=== PATIENT | male | born 1960 | race Caucasian/White ===

== ENCOUNTER 2019-05-18 11:11 | Emergency (ER) | payer OTHER, SELFPAY ==
[2019-05-18 11:19] VITALS: BP 121/78; PULSE 107; RESP 20; TEMP 37.1; O2SAT 99
--- NOTE | 2019-05-18 11:24 | ED.SKABFB ---
HPI - Skin/Abscess/Foreign Bdy General Chief complaint: Skin/Abscess/Foreign Body Stated complaint: rash Time Seen by Provider: 05/18/19 11:24 Source: patient and RN notes reviewed History of Present Illness HPI narrative: Patient is a 58-year-old male that presents the urgent care with complaints of 2-week history of lower bilateral arm rash. Patient states within the last week he has noted it is moved to the scalp and it becomes very inflamed and itchy. Patient states he has been using Selsun Blue [id number] which does seem to help. Patient has been using calamine to the arms without much relief. Denies of any known fever. Denies of any known contact of new substances, lotions, creams. No other acute complaints. No acute distress noted. Patient read the plan of care. Related Data Allergies Allergy/AdvReac Type Severity Reaction Status Date / Time No Known Allergies Allergy Verified 05/18/19 11:18 Review of Systems Review of Systems: Narrative: CONSTITUTIONAL: Denies fever, chills, or sweats. EYES: Denies visual changes, redness, or discharge. ENT: Denies rhinorrhea, congestion, sore throat, or otalgia. CARDIOVASCULAR: Denies chest pain, palpitations, or edema. RESPIRATORY: Denies cough or dyspnea. GASTROINTESTINAL: Denies abdominal pain, nausea, vomiting, or diarrhea. GENITOURINARY: Denies dysuria or hematuria. SKIN: Reports of dry itchy rash bilateral lower arms and the back of the scalp MUSCULOSKELETAL: Denies back pain, joint pain, or myalgia. NEUROLOGIC: Denies headache, numbness, or weakness. All other systems reviewed are negative, except as documented in HPI. PMFSH Comments At the time of my signature, I reviewed and agree with the nursing past medical, surgical, social, and family history. There is no relevant family history pertinent to the patient complaint. Exam Narrative: Exam Narrative: GENERAL: This is a well-nourished, well-developed patient, in no apparent distress. HEAD: normocephalic, atraumatic. EYES: PERRL. Sclera clear/white. Vision is grossly intact. EARS: Left external ear moderately erythemic with mild edema and dry patchy dermatitis. NOSE: External nose normal with no obvious nasal discharge THROAT: Mucous membranes moist NECK: Neck supple CARDIOVASCULAR: Regular rate and rhythm without murmurs, gallops, or rubs. RESPIRATORY: Clear to auscultation. Breath sounds equal bilaterally. No wheezes, rales, or rhonchi. SKIN: Dry erythemic patchy dermatitis noted to bilateral lower arms and occipital scalp region. Also noted to the left outer ear with moderate erythema NEURO: awake, alert, and oriented to person, place and time. There were no obvious focal neurologic abnormalities. EXTREMITIES: No clubbing, cyanosis, or edema. Course Vital Signs Vital signs: Vital Signs Temperature 98.7 F 05/18/19 11:19 Pulse Rate 107 H 05/18/19 11:19 Respiratory Rate 20 05/18/19 11:19 Blood Pressure 121/78 05/18/19 11:19 Pulse Oximetry 99 05/18/19 11:19 Temperature 98.7 F 05/18/19 11:19 Pulse Rate 107 H 05/18/19 11:19 Respiratory Rate 20 05/18/19 11:19 Blood Pressure 121/78 05/18/19 11:19 Pulse Oximetry 99 05/18/19 11:19 Reviewed MDM - Skin/Abscess/Foreign Bdy MDM Narrative Medical decision making narrative: Advised the patient to complete antibiotic regimen as prescribed for left ear cellulitis. May also use the cream to the left ear but do not put it in the canal. Make sure to eat and drink with oral medication. Use cream as directed to bilateral lower arms. Use shampoo as directed for scalp. Also use head and shoulders [id number] shampoo intermittently with prescription shampoo. Follow-up with PCP within 2 to 5 days or for worsening symptoms or failure to improve. Differential Diagnosis Differential diagnosis: Likely viral exanthem, urticaria, cellulitis, eczema, insect bites and contact dermatitis Critical Care Time Critical Care Time Critical Care Time:
== END 2019-05-18 11:43 | disposition home or self-care (01) ==
PROVIDERS: Emergency Provider Nurse Practitioner Family; PCP Family Medicine
DX: L40.9 Psoriasis, unspecified (principal); H60.12 Cellulitis of left external ear
CPT/HCPCS: 99203; G0463

== ENCOUNTER 2019-07-24 10:02 | Observation (INO) | payer OTHER, SELFPAY ==
[2019-07-24] VITALS (12 sets, daily range): BP systolic 110–138; BP diastolic 64–83; PULSE 101–129; RESP 16–25; TEMP 36.4–36.7; O2SAT 94–99; BMI 19.1
--- NOTE | ~2019-07-24 | US_ITS ---
EXAMINATION: US biopsy lymph node DATE: 07/25/2019 13:57 INDICATION: Left lung mass with left supraclavicular lymphadenopathy. TECHNIQUE: The procedure including the risks and benefits was discussed with the patient. Risks discu ssed included bleeding and infection. The patient understood the risks and agreed to proceed. The sk in overlying the lateral left neck was prepped and draped in usual sterile fashion. Anesthetic was a dministered with 1% lidocaine subcutaneously. An 18 gauge core biopsy needle was advanced under cont inuous ultrasound observation to one of the enlarged lymph nodes of interest. 3 core biopsy specimen s were obtained. The needle was removed and the entry site was cleaned and dressed. Post procedure ultrasound demonstrated no hemorrhage. FINDINGS: Ultrasound images demonstrate multiple enlarged hypoechoic left supraclavicular nodules jennifer picious for metastatic lymphadenopathy. Subsequent images demonstrate biopsy needle advanced into a 1 .7 x 1.4 cm lymph node. IMPRESSION: 1. Successful Ultrasound-guided biopsy of one of several enlarged left supraclavicular lymph nodes weir spicious for metastatic disease. Reviewed, dictated and finalized at location A. IMPRESSION: 1. Successful Ultrasound-guided biopsy of one of several enlarged left supracla vicular lymph nodes suspicious for metastatic disease.
--- NOTE | ~2019-07-24 | CT_ITS ---
EXAMINATION:CT chest w con DATE: 07/24/2019 10:59 INDICATION: Lung mass. TECHNIQUE: Computed tomography (CT) of the chest was performed with 75 mL Omnipaque 350 intravenous c ontrast. Automated exposure control and iterative reconstruction technique were employed. The dose-le ngth product (DLP) was 159.03 mGy-cm. COMPARISON: Chest single view 07/24/2019 FINDINGS: There is mild emphysema. There is extensive mediastinal, bilateral hilar, and left supracla vicular lymphadenopathy. There is an ill-defined left perihilar mass. There is narrowing of left main pulmonary artery and left mainstem bronchus. There are extensive airspace opacities and nodules in l eft upper lobe. There are mild perihilar groundglass opacities and airspace opacities in left lower l obe. There are multiple nodules in right hemithorax, most abutting the pleura. The largest nodule allison sures 9 mm. There is a small left pleural effusion with pleural nodularity. The heart size is normal. No pericardial effusion. The visualized portions of the liver demonstrates 3 masses measuring up to 3.3 x 2.0 cm. There are bilateral adrenal masses measuring up to 2.6 cm on the left. There is a 3.5 c m mass in the tail of the pancreas. There are multiple peritoneal masses. There is gastrohepatic and periportal lymphadenopathy. There is mild thoracic spondylosis. IMPRESSION: 1. Chest and abdominal lymphadenopathy, left perihilar mass, lung and pleural nodules, liver masses, adrenal masses, peritoneal masses, and pancreatic mass, consistent with metastatic disease, most like ly from a left lung primary. Ultrasound-guided core needle biopsy of a left supraclavicular lymph nod e is recommended. 2. Small malignant left pleural effusion. 3. Mild emphysema. 4. Postobstructive pneumonia involving left upper lobe and perihilar left lower lobe. Reviewed, dictated and finalized at location A. IMPRESSION: 1. Chest and abdominal lymphadenopathy, left perihilar mass, lung and pleural n odules, liver masses, adrenal masses, peritoneal masses, and pancreatic mass, c onsistent with metastatic disease, most likely from a left lung primary. Ultras ound-guided core needle biopsy of a left supraclavicular lymph node is recommen ded. 2. Small malignant left pleural effusion. 3. Mild emphysema. 4. Postobstructive pneumonia involving left upper lobe and perihilar left lower lobe.
--- NOTE | ~2019-07-24 | XR_ITS ---
EXAMINATION: XR chest 1V portable DATE: 07/24/2019 10:29 INDICATION: Cough and shortness of breath. Lung mass. TECHNIQUE: A single frontal view of the chest was obtained. COMPARISON: None. FINDINGS: There is mild scarring at the lung apices. There are extensive left perihilar airspace opac ities. No pleural effusion or pneumothorax. The heart size is normal. IMPRESSION: 1. Extensive left perihilar airspace opacities, consistent with pneumonia and/or malignancy. Chest CT is recommended. Reviewed, dictated and finalized at location A. IMPRESSION: 1. Extensive left perihilar airspace opacities, consistent with pneumonia and/o r malignancy. Chest CT is recommended.
--- NOTE | 2019-07-24 10:15 | ECG_ITS ---
Measurements Intervals [place] Rate: 120 P: 75 [place]: 144 QRS: 104 QRSD: 101 T: 37 QT: 307 QTc: 434 Interpretive Statements SINUS TACHYCARDIA RIGHT AXIS DEVIATION INCOMPLETE RIGHT BUNDLE BRANCH BLOCK BORDERLINE T WAVE ABNORMALITY- INFERIOR LEADS BASELINE ARTIFACT- I, V6 ABNORMAL ECG Electronically Signed On 07-24-2019 11:03:23 CDT by Petey Hutchins D.O.
--- NOTE | 2019-07-24 10:25 | ED.GENADULT ---
HPI - General Adult General Chief complaint: Unspecified Stated complaint: possible lung mass Time Seen by Provider: 07/24/19 10:05 Source: RN notes reviewed History of Present Illness HPI narrative: Patient presents emergency department from home for lung mass. Patient states he was seen in the urgent care last week for upper respiratory infection. States that time he had a negative COVID test and had a chest x-ray showing a left-sided lung mass. Patient states he does not have a PCP and came to the emergency department for further evaluation. Patient states mild pain in his left lateral chest. States the cough has improved. He denies any fevers or chills shortness of breath abdominal pain nausea vomiting or any other symptoms states he does smoke 1 pack/day of cigarettes Related Data Home Medications Medication Instructions Recorded Confirmed No Home Medications 07/24/19 07/24/19 Allergies Allergy/AdvReac Type Severity Reaction Status Date / Time No Known Allergies Allergy Verified 07/24/19 10:12 Review of Systems Review of Systems: Narrative: Gen.: Denies fevers or chills Eyes: Denies eye pain or visual change ENT: Denies congestion Respiratory: Denies shortness of breath or cough reports lung mass CV: Denies chest pain or palpitations GI: Denies abdominal pain nausea, emesis or diarrhea Musculoskeletal: Denies back pain or muscle pain Neuro: Denies numbness, tingling, weakness or focal weakness Skin: Denies rash Except as documented, all other systems reviewed and negative [facility] Past Medical History Medical History (Updated 07/24/19 @ 12:22 by Pj Sylvester DO) Patient denies significant medical history Social History Social History (Updated 07/24/19 @ 10:26 by Pj Sylvester DO) Smoking packs per day: 1 Smoking cigarettes per day: 20.0 Gender identity (if verbalized by the patient): Male Exam Narrative: Exam Narrative: APPEARANCE: No acute distress, nontoxic, resting in bed EYES: EOMI HEENT: Normocephalic, atraumatic, OMM RESPIRATORY: No respiratory distress coarse breath sounds at the bilateral lung millan, CARDIOVASCULAR: Tachycardic and regular without murmurs rubs or gallops. ABDOMINAL: Soft, nontender, nondistended, no rebound or guarding MUSCULOSKELETAl: Moves all extremities. No clubbing, cyanosis or edema. NEURO: Awake and alert. Following commands, speech normal, no focal deficits SKIN:: Warm, dry. No rashes lesions or abrasions PSYCHIATRIC: Normal affect/mood, Course Course Emergency Course: Discussed with Dr. Ibanez presentation work-up. Agrees with admission at this time Discussed with Dr. Ferguson presentation work-up. Agrees with admission. Agrees with Rocephin and Zithromax Discussed with patient and family results of workup and diagnosis. Discussed need for admission. Patient and family understand and agree to current treatment plan. Discussed with patient likely lung cancer with metastasis and need for further inpatient work-up Vital Signs Vital signs: Vital Signs Temperature 98.1 F 07/24/19 10:06 Pulse Rate 129 H 07/24/19 10:06 Respiratory Rate 18 07/24/19 10:06 Blood Pressure 138/83 07/24/19 10:06 Pulse Oximetry 99 07/24/19 10:06 Temperature 98.1 F 07/24/19 10:06 Pulse Rate 110 H 07/24/19 11:44 Respiratory Rate 16 07/24/19 11:44 Blood Pressure 129/73 07/24/19 11:44 Pulse Oximetry 98 07/24/19 11:44 Medical Decision Making Vital Signs Vital Signs: Vital Signs Temperature 98.1 F 07/24/19 10:06 Pulse Rate 129 H 07/24/19 10:06 Respiratory Rate 18 07/24/19 10:06 Blood Pressure 138/83 07/24/19 10:06 Pulse Oximetry 99 07/24/19 10:06 Temperature 98.1 F 07/24/19 10:06 Pulse Rate 110 H 07/24/19 11:44 Respiratory Rate 16 07/24/19 11:44 Blood Pressure 129/73 07/24/19 11:44 Pulse Oximetry 98 07/24/19 11:44 Lab Data Result diagrams: 07/24/19 10:18 07/24/19 10:18
[2019-07-24] MEDS: SODIUM CHLORIDE 0.9% IV 1,000 ML 999 ML IV CONT (10:27)
[2019-07-24 10:29] LABS: Basophils Absolute Auto 0.1 K/mm3 (0.0-0.1); Basophils Percent Auto 0.3 % (0.2-1.2); Eosinophils Percent Auto 0.2 % (0-4.4); Hematocrit 37.1 % (42.0-52.0); Hemoglobin 12.9 g/dL (14.0-18.0); Immature Granulocyte Absolute 0.15 K/mm3 (0.00-0.031); Immature Granulocyte Percent A 0.9 % (0-0.5); Lymphocytes Absolute Auto 1.52 K/mm3 (0.9-3.2); Lymphocytes Percent Auto 8.7 % (18.3-44.2); Mean Corpuscular HGB Conc 34.8 g/dl (32-36); Mean Corpuscular Hemoglobin 32.7 pg (26-34); Mean Corpuscular Volume 93.9 fl (80-100); Mean Platelet Volume 7.9 fl (7.4-10.4); Monocytes Absolute Auto 1.3 K/mm3 (0.1-0.6); Monocytes Percent Auto 7.4 % (2.6-8.5); Neutrophils Absolute Auto 14.5 K/mm3 (1.3-6.7); Neutrophils Percent Auto 82.5 % (45.5-73.1); Platelet Count Result 418 k/mm3 (150-375); Red Blood Count 3.95 M/mm3 (4.6-6.20); Red Cell Distribution Width 13.1 % (11.5-14.5); White Blood Count 17.5 K/mm3 (4.5-10.0)
[2019-07-24 10:39] LABS: Prothrombin Time 12.9 Seconds (11.1-14.7)
[2019-07-24 10:40] LABS: Partial Thromboplastin Time 31.5 SECONDS (22.3-36.8)
[2019-07-24 10:41] LABS: Alanine Aminotransferase 21 U/L (4-50); Albumin Level 3.8 g/dL (3.5-5.1); Alkaline Phosphatase 85 U/L (38-126); Aspartate Amino Transferase 38 U/L (17-59); Bilirubin,Total 0.3 mg/dL (0.2-1.3); Blood Urea Nitrogen 11 mg/dL (9-20); Calcium 9.3 mg/dL (8.4-10.2); Carbon Dioxide 30 mmol/L (22-30); Chloride 92 mmol/L (98-107); Estimated CRCL calculation 99 ml/min; Estimated Glomerular Filt Rate > 60; Glucose 143 mg/dL (75-110); Potassium 3.6 mmol/L (3.4-5.0); Sodium 131 mmol/L (137-145)
--- NOTE | 2019-07-24 13:45 | ADMGEN ---
This patient, Fabrizio Canada, was admitted to Medical Room 243-. Patient/family oriented to hospital policies and general routines including ID bracelet, bed and alarms, visiting hours, pain management, procedures, bathroom and other care routines, personal items, smoking policy, room service/diet, and visiting hours. Valuables list has been completed. Information on how to activate the Rapid Response Team has been discussed. Patient/Family are encouraged to report perceived risks to care and to ask questions if they do not understand what they are told or what they should do.
[2019-07-24] MEDS: SODIUM CHLORIDE 0.9% IV 1,000 ML 80 ML IV CONT (14:10)
[2019-07-24] MEDS: ALBUTEROL SULFATE NEB 2.5 MG/0.5 ML INH 5 MG INHALATION ×2 (14:26→19:54)
[2019-07-24] MEDS: IPRATROPIUM BR 0.02% INH SOLN 0.5 MG/2.5 ML VIAL INHALATION ×2 (14:26→19:54)
[2019-07-24 15:44] LABS: Sodium 127 mmol/L (137-145)
--- NOTE | 2019-07-24 16:07 | PM.CNPUL ---
Assessment and Plan Assessment and plan (1) Mass of left lung: Code(s): R91.8 - Other nonspecific abnormal finding of lung field Status: Acute Assessment and Plan: Large L hilar and DIMITRIOS mass with post obstructive pneumonia, chest and abdominal lymphadenopathy, lung and pleural nodules, liver masses, adrenal masses, peritoneal masses, and pancreatic mass, consistent with metastatic disease, most likely from a left lung primary. He is scheduled for an ultrasound guided need biopsy of the left supraclavicular lymph node tomorrow am, and a bronchoscopy to follow. The small left pleural effusion would not be large enough to tap, and yield would be low. I spoke with his Mary Canada on the phone in the room with the patient. She wants to know if she can be present in the waiting room during the bronchoscopy. I will call her [phone] after the procedure if she is not able to be in the waiting room during the bronchoscopy. (2) Postobstructive pneumonia: Code(s): J18.9 - Pneumonia, unspecified organism Status: Acute Assessment and Plan: Antibiotics have been added, which may help however the main problem is the compression of the airway by the mass. (3) COPD (chronic obstructive pulmonary disease): Qualifiers: COPD type: emphysema Emphysema type: unspecified Qualified Code(s): J43.9 - Emphysema, unspecified Code(s): J44.9 - Chronic obstructive pulmonary disease, unspecified Status: Acute Assessment and Plan: noted on chest CT 07/24/2019; he reports relief from bronchodilator treatments (4) Tobacco dependence: Code(s): F17.200 - Nicotine dependence, unspecified, uncomplicated Status: Acute Assessment and Plan: He was smoking 1 ppd prior to this admission, total of 60 pack years. Tobacco cessation is encouraged. Nicotine replacement therapy is an option. (5) Acute hyponatremia: Code(s): E87.1 - Hypo-osmolality and hyponatremia Status: Acute Assessment and Plan: Likely due to SIADH as a paraneoplastic effect from suspected lung cancer. History of Present Illness History of Present Illness Consult date: 07/24/19 Requesting physician: Darien Guadalupe MD Reason for consult: lung mass Chief complaint: lung cancer new onset post obstructive pneumonia s Narrative: NEW CONSULT: Fabrizio Canada is a 58 yo man with no past med history. He presented to Urgent Care a week ago with coughing, chest tightness, sputum, shortness of breath. He was COVID19 negative, treated with a Z-pack with improvement. He feels much better today. He returned to the ER because the CXR at the Urgent Care showed a left lung mass, and he does not have a primary care doctor. He was tachycardic in the ER, received IV fluids. CT today shows: 1. Chest and abdominal lymphadenopathy, left perihilar mass, lung and pleural nodules, liver masses, adrenal masses, peritoneal masses, and pancreatic mass, consistent with metastatic disease, most likely from a left lung primary. Ultrasound-guided core needle biopsy of a left supraclavicular lymph node is recommended. 2. Small malignant left pleural effusion. 3. Mild emphysema. 4. Postobstructive pneumonia involving left upper lobe and perihilar left lower lobe. He has lost 21 pounds in a month, now 134 lb, has a good appetite, no difficulty swallowing. His voice is raspy, which he attributes to the recent infection. About 3 weeks ago he had right lower chest wall pain due to excessive coughing, fever, chest congestion, with resolution of those symptoms. He is still smoking about a pack per day. He does not have a history of recurrent infections, cancer, asthma/COPD, does not take medications regularly. We discussed a bronchoscopy to obtain tissue for diagnosis and treatment of probable lung cancer. He is also scheduled for a lymph node biopsy tomorrow of the left supraclavicular lymph node. Review of Systems Constitutiona
--- NOTE | 2019-07-24 16:35 | PM.IMHP ---
H&P: HPI History of Present Illness Chief complaint: Left lung mass. Narrative: Fabrizio Canada is a 58-year-old male smoker who presented to the emergency department earlier this morning via private vehicle from home for follow-up of a left lung mass noted on chest x-ray last week. He has felt unwell for the past 2 to 3 weeks, with upper respiratory symptoms to include mild sore throat, hoarseness, and cough. He was seen at a local urgent care last week, and at that time he was prescribed a Z-James for presumed bronchitis. Additionally, a left-sided lung mass was noted on chest x-ray and he was instructed to follow-up with a physician this week for further evaluation. He does not have a primary care provider and was unable to get an appointment to establish care, and thus he came in today. With regards to his respiratory symptoms, he feels better after taking the Z-James. He continues to have hoarseness, however his sore throat has resolved. He does have a cough, but really has not been productive. Imaging today showed a left hilar mass, presumably primary bronchogenic carcinoma, with evidence of metastatic disease, and findings of postobstructive pneumonia and he is being admitted in this setting. At the time my evaluation, he is anxious to get a diagnosis and to be discharged home. With further questioning, he has had an unintentional 20 pound weight loss in the past 1 months time although he reports having a good appetite. Occasionally he will have mild left-sided chest discomfort, sharp stabbing in nature, but that is fleeting. He has not had fever, chills, or sweats. No sick contacts. He denies exposure to those positive for COVID-19, and in fact reports that he tested negative for such just last week. He denies shortness of breath. No nausea or vomiting. No lower extremity edema. Has not noticed lymphadenopathy. Review of Systems Review of Systems: Narrative: Twelve systems were reviewed with pertinent positives and negatives as per HPI. No fever, chills, or sweats. He denies exertional chest pain shortness of breath. No wheezing. No known history of malignancy. He denies abdominal pain. No nausea, vomiting, or diarrhea. Appetite has been good although he has lost weight as per HPI. Except as documented, all other systems were reviewed and are negative PMFSH Past Medical History Medical History (Updated 07/24/19 @ 17:37 by Irma Nguyen PA-C) COPD with emphysema History of alcohol abuse Tobacco dependence Surgical History Surgical History (Updated 07/24/19 @ 17:37 by Irma Nguyen PA-C) No history of previous surgery Family History Family History (Updated 07/24/19 @ 17:38 by Irma Nguyen PA-C) Mother Liver malignancy Father Acute myocardial infarction Social History Social History (Updated 07/24/19 @ 17:39 by Irma Nguyen PA-C) Social History: The patient is and lives with his in [place]. They have 3 children who are healthy. 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 He has a history of alcohol abuse, but quit drinking approximately 3 months ago ?because I lost my taste for it.? He has smoked between 1 and 2 packs of cigarettes per day since age of 18. He uses marijuana on occasion. He designates his , Mary, as his surrogate decision maker and he wishes to be a full code. Smoking packs per day: 1.5 Smoking cigarettes per day: 30.0 Years smoked: 40 Smoking pack-years: 60.00 Smoking status: Current every day smoker Tobacco type: cigarettes Second hand tobacco smoke exposure: Yes Alcohol intake: former Alcohol use details: Quit 2-3 months ago, lost his taste for alcohol. 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
--- NOTE | 2019-07-24 16:42 | WPDANESEPP ---
Anes - Eval Pre Procedure Procedure: Operation Date: 07/25/19 12:00 Proposed Procedures p Bronchoscopy - Ting Ferguson MD Date/Time: 07/24/19 16:42 Pre Op Diagnosis: lung cancer new onset post obstructive pneumonia s Patient Data Age: 58 Gender: M Height: 5 ft 11 in Weight: 62 kg Last Vital Signs Temp 97.9 F 07/24/19 15:02 Pulse 114 H 07/24/19 15:02 Resp 19 07/24/19 15:02 BP 121/67 07/24/19 15:02 Pulse Ox 98 07/24/19 15:02 Allergies Allergy/AdvReac Type Severity Reaction Status Date / Time No Known Allergies Allergy Verified 07/24/19 10:12 Home Medications Medication Instructions Recorded Confirmed Type No Home Medications 07/24/19 07/24/19 History Laboratory Tests 07/24/19 07/24/19 07/24/19 10:18 10:18 10:18 WBC 17.5 K/mm3 H K/mm3 (4.5-10.0) RBC 3.95 M/mm3 L M/mm3 (4.6-6.20) Hgb 12.9 g/dL L g/dL (14.0-18.0) Hct 37.1 % L % (42.0-52.0) MCV 93.9 fl fl (80-100) MCH 32.7 pg pg (26-34) MCHC 34.8 g/dl g/dl (32-36) RDW 13.1 % % (11.5-14.5) Plt Count 418 k/mm3 H k/mm3 (150-375) MPV 7.9 fl fl (7.4-10.4) Immature Gran % (Auto) 0.9 % H % (0-0.5) Neut % (Auto) 82.5 % H % (45.5-73.1) Lymph % (Auto) 8.7 % L % (18.3-44.2) [place] % (Auto) 7.4 % % (2.6-8.5) Eos % (Auto) 0.2 % % (0-4.4) Baso % (Auto) 0.3 % % (0.2-1.2) Lymph # (Auto) 1.52 K/mm3 K/mm3 (0.9-3.2) [place] # (Auto) 1.3 K/mm3 H K/mm3 (0.1-0.6) Eos # (Auto) 0.0 K/mm3 K/mm3 (0-0.3) Baso # (Auto) 0.1 K/mm3 K/mm3 (0.0-0.1) Abs Immat Gran (auto) 0.15 K/mm3 H K/mm3 (0.00-0.031) Absolute Neuts (auto) 14.5 K/mm3 H K/mm3 (1.3-6.7) Absolute Nucleated RBC 0.0 K/mm3 K/mm3 (0.0-0.012) Nucleated RBC % 0.0 % % (0.0-0.2) PT 12.9 Seconds Seconds (11.1-14.7) INR 1.0 APTT 31.5 SECONDS SECONDS (22.3-36.8) Sodium 131 mmol/L L mmol/L (137-145) Potassium 3.6 mmol/L mmol/L (3.4-5.0) Chloride 92 mmol/L L mmol/L (98-107) Carbon Dioxide 30 mmol/L mmol/L (22-30) BUN 11 mg/dL mg/dL (9-20) Creatinine 0.60 mg/dL L mg/dL (0.7-1.3) Estim Creat Clear Calc 99 ml/min ml/min Estimated GFR > 60 (59 - ) Glucose 143 mg/dL H mg/dL (75-110) Lactic Acid Calcium 9.3 mg/dL mg/dL (8.4-10.2) Total Bilirubin 0.3 mg/dL mg/dL (0.2-1.3) AST 38 U/L U/L (17-59) ALT 21 U/L U/L (4-50) Alkaline Phosphatase 85 U/L U/L (38-126) Total Protein 7.0 g/dL g/dL (6.3-8.2) Albumin 3.8 g/dL g/dL (3.5-5.1) 07/24/19 07/24/19 15:30 15:30 WBC RBC Hgb Hct MCV MCH MCHC RDW Plt Count MPV Immature Gran % (Auto) Neut % (Auto) Lymph % (Auto) [place] % (Auto) Eos % (Auto) Baso % (Auto) Lymph # (Auto) [place] # (Auto) Eos # (Auto) Baso # (Auto) Abs Immat Gran (auto) Absolute Neuts (auto) Absolute Nucleated RBC Nucleated RBC % PT INR APTT Sodium 127 mmol/L L mmol/L (137-145) Potassium Chloride Carbon Dioxide BUN Creatinine Estim Creat Clear Calc Estimated GFR Glucose Lactic Acid 1.0 mmol/L mmol/L (0.7-2.1) Calcium Total Bilirubin AST ALT Alkaline Phosphatase Total Protein Albumin Patient hx anesthesia problems: none Family hx anesthesia problems: none [facility] Past Medical History
[2019-07-24] MEDS: AMPICILLIN SULB 3 GM/NS 100 ML 3 GM/100 ML VIAL IVPB ×2 (19:18→23:19)
[2019-07-24 21:30] LABS: Creatinine Urine 30.5 mg/dL
[2019-07-24 21:31] LABS: Sodium Urine Random 61 meq/L
[2019-07-24 23:33] LABS: Sodium 127 mmol/L (137-145)
[2019-07-25] VITALS (23 sets, daily range): BP systolic 99–144; BP diastolic 57–79; PULSE 95–114; RESP 16–27; TEMP 36.4–36.8; O2SAT 91–98
[2019-07-25] MEDS: ALBUTEROL SULFATE NEB 2.5 MG/0.5 ML INH 5 MG INHALATION ×3 (01:47→14:06)
[2019-07-25] MEDS: IPRATROPIUM BR 0.02% INH SOLN 0.5 MG/2.5 ML VIAL INHALATION ×3 (01:48→14:06)
[2019-07-25 05:16] LABS: Basophils Absolute Auto 0.1 K/mm3 (0.0-0.1); Basophils Percent Auto 0.4 % (0.2-1.2); Eosinophils Absolute Auto 0.1 K/mm3 (0-0.3); Eosinophils Percent Auto 0.4 % (0-4.4); Hemoglobin 11.5 g/dL (14.0-18.0); Immature Granulocyte Absolute 0.13 K/mm3 (0.00-0.031); Immature Granulocyte Percent A 0.8 % (0-0.5); Lymphocytes Absolute Auto 1.46 K/mm3 (0.9-3.2); Lymphocytes Percent Auto 9.5 % (18.3-44.2); Mean Corpuscular HGB Conc 34.8 g/dl (32-36); Mean Corpuscular Hemoglobin 32.1 pg (26-34); Mean Corpuscular Volume 92.2 fl (80-100); Mean Platelet Volume 8.1 fl (7.4-10.4); Monocytes Absolute Auto 1.2 K/mm3 (0.1-0.6); Neutrophils Absolute Auto 12.4 K/mm3 (1.3-6.7); Neutrophils Percent Auto 80.9 % (45.5-73.1); Platelet Count Result 432 k/mm3 (150-375); Red Blood Count 3.58 M/mm3 (4.6-6.20); Red Cell Distribution Width 12.9 % (11.5-14.5); White Blood Count 15.3 K/mm3 (4.5-10.0)
[2019-07-25 05:20] LABS: Prothrombin Time 12.9 Seconds (11.1-14.7)
[2019-07-25 05:21] LABS: Partial Thromboplastin Time 37.6 SECONDS (22.3-36.8)
[2019-07-25 05:25] LABS: Alanine Aminotransferase 26 U/L (4-50); Albumin Level 3.3 g/dL (3.5-5.1); Alkaline Phosphatase 79 U/L (38-126); Aspartate Amino Transferase 42 U/L (17-59); Bilirubin,Total 0.3 mg/dL (0.2-1.3); Blood Urea Nitrogen 6 mg/dL (9-20); Calcium 8.8 mg/dL (8.4-10.2); Carbon Dioxide 25 mmol/L (22-30); Chloride 96 mmol/L (98-107); Estimated CRCL calculation 121 ml/min; Estimated Glomerular Filt Rate > 60; Glucose 99 mg/dL (75-110); Potassium 3.7 mmol/L (3.4-5.0); Sodium 129 mmol/L (137-145)
[2019-07-25] MEDS: AMPICILLIN SULB 3 GM/NS 100 ML 3 GM/100 ML VIAL IVPB ×2 (06:05→14:51)
--- NOTE | 2019-07-25 08:08 | P.PNAN_ITS ---
Anes - Eval Final PreProcedure Day of Procedure 07/25/19 08:08 Patient weight: normal Heart: regular rate and rhythm Lungs: clear to auscultation and normal air movement Airway: Mallampati scale class II Neurological: alert and oriented Last oral intake: >/= 8 hours ASA classification: IV Emergent: no Anesthetic plan: proceed Anesthesia type and monitoring: general GIVS Informed Consent: The patient's anesthetic plan and its attendant risks and b enefits were discussed with the patient/family/POA. Questions were solicited and answers provided to the satisfaction of the patient/family/POA.
--- NOTE | 2019-07-25 09:45 | PC.NURSE ---
To GI Lab for Bronchoscopy per stretcher, IV saline locked.
[2019-07-25] MEDS: LACTATED RINGERS 1,000 ML 150 ML IV CONT (09:53)
--- NOTE | 2019-07-25 10:05 | SUR.PREOP ---
07/25/19 1000 PATIENT SITTING UP IN CHAIR IMANI WITH PATIENT. PATIENT'S NECKLACE GIVEN TO HIS FOR THE PROCEDURE. DEE LEE
--- NOTE | 2019-07-25 12:57 | SUR.PHASEII ---
1245 patient moved out to outpatient room 12, spouse at bedside, o2 removed, coughing up secretions. 1255 o2 sats 89 o2 nasal cannula applied at 2 liters.
--- NOTE | 2019-07-25 13:15 | SUR.PHASEII ---
1312 DR. CARRASQUILLO IN TO TALK WITH PATIENT AND FAMILY, QUESTIONS VOICED, ULTRA SOUND CALLED WITH UP DATE, NECKLACE GIVEN TO JACE NURSE AND PUT ON PATIENT'S CHART. 1315 DR. COTO CALLED WITH PATIENT'S UPDATE AND THE NEED FOR O2 AT 2 L. DOCTOR OK WITH 02 NO OTHER ORDER RECEIVED. 1320 PATIENT TRANSFERRED TO ULTRASOUND FOR LYMPH NODE BIOPSY, [facility]. DEE LEE
--- NOTE | 2019-07-25 15:33 | PM.PNPUL ---
Progress Note: A&P Assessment and Plan (1) Mass of left lung: Code(s): R91.8 - Other nonspecific abnormal finding of lung field Status: Acute Assessment and Plan: completed bronchoscopy; biopsies brushings and washings are pending results expected SundayJuly 28 he is planning to contact Dr Pinto for oncology appointment probable lung cancer He is able to saturate normally on room air; walked 2nd Medical sat saturation 93% and above Follow up with my office next week; can do a virtual visit (2) Postobstructive pneumonia: Code(s): J18.9 - Pneumonia, unspecified organism Status: Acute Assessment and Plan: d/w Christine; Augmentin 875 mg BID x 5 days. The post obstructive pneumonia will not get better until his mass is treated (3) COPD (chronic obstructive pulmonary disease): Qualifiers: COPD type: emphysema Emphysema type: unspecified Qualified Code(s): J43.9 - Emphysema, unspecified Code(s): J44.9 - Chronic obstructive pulmonary disease, unspecified Status: Acute Assessment and Plan: by exam and history; Symbicort and Spiriva; d/w Christine Stimac PA. Will start these today (4) Tobacco dependence: Code(s): F17.200 - Nicotine dependence, unspecified, uncomplicated Status: Acute Assessment and Plan: talked with pt and his Mary; really needs to quit; short anatoly will make him feel anxious, have poor sleep, increase irritability. Cancer patients who quit smoking fare better than those who continue to smoke. Subjective Date/time seen: 07/25/19 15:33 This 58 yo man is seen in follow up after bronchoscopy for a left upper lobe mass with postobstructive pneumonia. He is doing well, walked around the entire 2nd medical unit on room air with saturation 93-94%, heart rate was elevated 120; he was admitted with elevated heart rate; ready to go home. Has not had lunch, does not want to eat until he goes home. Review of Systems Review of Systems: All systems reviewed & are unremarkable except as noted in HPI and below Exam Const: General: no acute distress HENMT: Mouth: Yes moist mucous membranes Resp: Auscultation: rhonchi (left upper lung millan) and diminished lung sounds (throughout) Cardio: Rate: tachycardic Rhythm: regular rhythm Skin: General skin exam: normal color Neuro: General: gait normal Extrem: General: normal to inspection Psych: Mental Status: mental status grossly normal Objective Data Vital Signs Vital Signs: Vital Signs - 24 hr 07/24/19 19:56 07/24/19 20:00 07/24/19 20:06 Temperature Pulse Rate 103 H 104 H 101 H Respiratory Rate 18 19 Blood Pressure Pulse Oximetry 07/24/19 21:24 07/25/19 00:06 07/25/19 01:48 Temperature 36.4 C Pulse Rate 103 H 95 99 Respiratory Rate 16 18 Blood Pressure 118/64 Pulse Oximetry 94 07/25/19 01:57 07/25/19 04:00 07/25/19 05:33 Temperature 36.4 C L Pulse Rate 95 96 106 H Respiratory Rate 16 Blood Pressure 117/67 Pulse Oximetry 97 07/25/19 07:53 07/25/19 08:00 07/25/19 08:03 Temperature Pulse Rate 103 H 99 101 H Respiratory Rate 18 18 Blood Pressure Pulse Oximetry 07/25/19 09:59 07/25/19 12:00 07/25/19 12:19 Temperature 36.4 C 36.8 C Pulse Rate 98 104 H 102 H Respiratory Rate 18 22 H Blood Pressure 131/71 114/71 Pulse Oximetry 96 98 07/25/19 12:29 07/25/19 12:39 07/25/19 12:45 Temperature 36.4 C Pulse Rate 100 107 H 111 H Respiratory Rate 24 H 22 H 23 H Blood Pressure 126/76 124/79 99/57 L Pulse Oximetry 94 94 95 07/25/19 12:50 07/25/19 13:00 07/25/19 13:10 Temperature Pulse Rate 109 H 100 109 H Respiratory Rate 24 H
--- NOTE | 2019-07-25 17:13 | PCDIET ---
Nutrition Screen complete: Seeing pt today due to MST score. Pt with BMI of 19.1 and wt loss of 20lbs in one month. Upon calling to speak with pt, he states he is d/c home today. If pt remains inpatient, recommend continuing regular diet and Enlive TID to help halt further wt loss.
--- NOTE | 2019-07-26 07:45 | PM.DS ---
DS: Diagnosis Admitting Diagnosis Admitting Diagnosis: Other nonspecific abnormal finding of lung field Discharge Diagnosis (1) Sepsis: Code(s): A41.9 - Sepsis, unspecified organism Status: Acute (2) Postobstructive pneumonia: Code(s): J18.9 - Pneumonia, unspecified organism Status: Acute (3) Mass of left lung: Code(s): R91.8 - Other nonspecific abnormal finding of lung field Status: Acute (4) Acute hyponatremia: Code(s): E87.1 - Hypo-osmolality and hyponatremia Status: Acute (5) Tobacco dependence: Code(s): F17.200 - Nicotine dependence, unspecified, uncomplicated Status: Acute DS: Summary Hospital Course Reason for hospitalization: Evaluation of lung mass Hospital Course: Date of admission: 07/24/19 Date of discharge: 07/25/19 Fabrizio Canada is a 58 year old male with a PMH significant for COPD and tobacco dependence who presented to the ED on 07/24/19 for evaluation of a possible lung mass. He had previously been seen at urgent care for URI symptoms and a CXR showed a left sided mass, and he came to the ED for evaluation as he does not have a PCP. He noted a 21 lb weight loss in the past month. Chest CT on 07/24/19 reveals large left hilar and left upper lobe mass with post obstructive pneumonia, chest and abdominal lymphadenopathy, lung and pleural nodules, liver masses, adrenal masses, peritoneal masses, and pancreatic mass, consistent with metastatic disease, most likely from a left lung primary. He was admitted to the hospitalist service on 07/24/19 and pulmonology was consulted. He underwent bronchoscopy and supraclavicular lymph node biopsy on 07/25/19 with results pending. He was septic at presentation evident by tachycardia and leukocytosis and started on Unasyn and Azithromycin. He was afebrile. He will continue taking Augmentin for 5 days, but post-obstructive pneumonia will likely not improve until he receives treatment for his mass. He was also noted to have hyponatremia, possibly due to SIADH secondary to suspected malignancy. He will repeat sodium level in one week. He was able to maintain adequate oxygen saturations 93% and above on room air. He was relatively asymptomatic and eager to discharge home. I spoke with his regarding his condition, and she had reached out to Dr. Pinto's office to schedule an appointment. He requested Dr. Greenberg be his PCP and I scheduled an appointment for 1 week. He will have a telemedicine visit with Dr. Ferguson in 1 week. Smoking cessation was discussed exhaustively by several providers, however patient continues to report he does not intend to quit smoking. We discussed the importance of attending his follow up appointments to review pathology results and completing his antibiotic regimen. He was started on Spiriva and Symbicort and educated on inhaler use by Respiratory Therapy. He was discharged home in hemodynamically stable condition on the afternoon of 07/25/19. Time spent discussing smoking cessation with patient: more than 10 minutes Status at Discharge Functional status at discharge: independent ambulation Time Spent with Patient Time attestation: Total time spent providing and/or coordinating discharge services:43 minutes Time spent: Greater than 30 minutes Exam Narrative: Exam Narrative: Mr. Canada is examined alone today. He is a well nourished male 58 year old male who appears older than stated age. He is sitting up in bed and appears comfortable and in NARD. HR 101, BP 117/67, RR 18, T 97.5 Neuro: awake, alert and oriented x3, speech clear, no focal neuro deficits noted HEENMT: normocephalic, atraumatic, EOMI, PERRL, sclerae anicteric, moist oral mucosa, normal oropharynx Neck: supple, no lymphadenopathy Respiratory: diminished breath sounds throughout with scattered rhonchi, normal respiratory effort without accessory muscle use, 93% on room air Cardio: regular rate, regular rhythm, normal S1 and S2 Abdomen: normal
[2019-07-28 04:19] LABS: Osmolality, Urine 253 mOsm/kg (50-1200)
[2019-07-28 17:36] LABS: Pneumococcal Antigen Urine Not Detected (Not Detected)
[2019-07-29 17:10] LABS: Legionella pneumophila Ag Ur Not Detected (Not Detected)
== END 2019-07-25 17:20 | disposition home or self-care (01) ==
LOC: ANHED 12:37 → ANH2MED 15:13
PROVIDERS: Internal Medicine Critical Care Medicine; Physician Assistant; Admitting Provider Family Medicine; Emergency Provider Emergency Medicine; Visit Provider Physician Assistant
PROC: 0BJ08ZZ Inspection of Tracheobronchial Tree, Via Natural or Artificial Opening Endoscopic (ICD-10-PCS; CPT 31622; principal; 2019-07-25 12:00)
DX: C7A.1 Malignant poorly differentiated neuroendocrine tumors (principal); C7B.8 Other secondary neuroendocrine tumors; T17.890A Other foreign object in other parts of respiratory tract causing asphyxiation, initial encounter; A41.9 Sepsis, unspecified organism; J18.9 Pneumonia, unspecified organism; J43.9 Emphysema, unspecified; E87.1 Hypo-osmolality and hyponatremia; F17.210 Nicotine dependence, cigarettes, uncomplicated
CPT/HCPCS: 31625; 31623; 31624; 36415; 38505; 71045; 71260; 76942; 80053; 82570; 83605; 83930; 83935; 84295; 84300; 85025; 85610; 85730; 87015; 87040; 87070; 87102; 87116; 87205; 87206; 87252; 87449; 87899; 88104; 88108; 88160; 88305; 88342; 93005; 94640; 94667; 94668; 96361; 96365; 96366; 96367; 99285; A9270; G0378; J0295; J0456; J0696; J2405; J2704; J7030; J7120; Q9967

== ENCOUNTER 2020-04-12 07:45 | Inpatient (IN) | payer OTHER, SELFPAY ==
[2020-04-12] VITALS (9 sets, daily range): BP systolic 63–114; BP diastolic 35–66; PULSE 77–106; RESP 9–28; TEMP 36; O2SAT 83–98
--- NOTE | ~2020-04-12 | XR_ITS ---
EXAMINATION: XR chest 1V portable DATE: 04/12/2020 09:04 INDICATION: Shortness of breath. TECHNIQUE: A single frontal view of the chest was obtained on 3 radiographs. COMPARISON: Chest single view 07/24/19, chest CT 07/24/2019 FINDINGS: There are airspace opacities in right lower lung zone and all left lung zones. There is mil d scarring at the lung apices. No pleural effusion or pneumothorax. The heart size is normal. IMPRESSION: 1. Airspace opacities in right lower lung zone and in all left lung zones, consistent with pneumonia and left lung cancer. Reviewed, dictated and finalized at location B. ET WORKER IMPRESSION: 1. Airspace opacities in right lower lung zone and in all left lung zones, cons istent with pneumonia and left lung cancer.
--- NOTE | 2020-04-12 07:52 | ECG_ITS ---
Measurements Intervals [place] Rate: 104 P: 77 [place]: 123 QRS: 88 QRSD: 88 T: 86 QT: 326 QTc: 430 Interpretive Statements SINUS TACHYCARDIA INCOMPLETE RIGHT BUNDLE BRANCH BLOCK ST ELEVATION IN INFERIOR LEADS, PROBABLY EARLY REPOLARIZATION BORDERLINE T WAVE ABNORMALITY- HIGH LATERAL LEADS BASELINE ARTIFACT- I, III, V2, V4 BORDERLINE ECG Electronically Signed On 04-12-2020 9:58:56 FORMULATION CHEMIST by Petey Hutchins D.O.
[2020-04-12] MEDS: SODIUM CHLORIDE 0.9% IV 1,000 ML 999 ML IV CONT ×2 (08:08→08:55)
--- NOTE | 2020-04-12 08:24 | PCRCNOTE ---
GABY held for now per DR. Todd. Dr. Todd states will call if needed.
--- NOTE | 2020-04-12 08:34 | ED.SOB ---
HPI - SOB/Dyspnea General Chief Complaint: Shortness of Breath/Dyspnea Stated Complaint: AMS, SOB Time Seen by Provider: 04/12/20 07:49 History of Present Illness HPI Narrative: Patient is a 59-year-old male with history of metastatic small cell lung cancer who presents ER with weakness/shortness of breath/confusion. Patient with new increased oxygen requirement. According to spouse patient has received palliative radiation but no chemotherapy. Patient did not want a portacatheter in his body as he does not want invasive procedures. Chart review shows a letter from patient's oncologist Dr. Pinto to the patient's PCP that paints a dire picture. It appears patient is dealing with a aggressive cancer but is not responding well. Last month family was not ready for hospice but it has been offered. Patient is alert and oriented x2-3. He is denying pain but is short of breath. According to patient has been having some abdominal pain over the last few days. She also reports he recently had a platelet transfusion for low platelets. Denies Covid exposures or trauma. It appears cancer is metastatic to the spine and liver. There is some question about whether there is brain metastases from what I have gathered. Recent CT scan of the chest and abdomen shows increased size of innumerable hepatic metastases, there is also the appearance of omental metastases. Related Data Allergies Allergy/AdvReac Type Severity Reaction Status Date / Time No Known Allergies Allergy Verified 02/10/20 09:11 Review of Systems Review of Systems: ROS unobtainable: Yes unobtainable due to medical condition PMFSH Past Medical History Medical History (Updated 04/12/20 @ 10:08 by Kahlil Todd MD) COPD with emphysema History of alcohol abuse Small cell lung cancer Tobacco dependence Surgical History Surgical History No history of previous surgery Family History Family History Mother Liver malignancy Father Acute myocardial infarction Social History Social History Social History: The patient is and lives with his in [place]. They have 3 children who are healthy. 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 He has a history of alcohol abuse, but quit drinking approximately 3 months ago ?because I lost my taste for it.? He has smoked between 1 and 2 packs of cigarettes per day since age of 18. He uses marijuana on occasion. He designates his , Mary, as his surrogate decision maker and he wishes to be a full code. 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 HEAD: Normocephalic, atraumatic. EYES: PERRL and EOMI. ENT: Dry mucous membranes CHEST: Rales throughout with increased work of breathing and 2-3 word answers. HEART: Tachycardic and regular. Normal peripheral pulses. ABDOMEN: Soft, mild epigastric/right upper quadrant discomfort without guarding, nondistended. EXTREMITIES: Normal range of motion. 2+ edema. SKIN: Warm, dry, pale, no rash. NEURO: Alert and oriented x 2-3. Course Reevaluation(s) Reevaluation #1: I have had a prolonged conversation with the patient's in the family room as well as at bedside. Dawit kaur
[2020-04-12 08:50] LABS: Immature Granulocyte Absolute 0.01 K/mm3 (0.00-0.031); Immature Granulocyte Percent A 4.5 % (0-0.5); Immature Platelet Fraction Pct 8.4 % (0.9-11.2); Mean Corpuscular HGB Conc 32.7 g/dl (32-36); Mean Corpuscular Hemoglobin 33.8 pg (26-34); Mean Corpuscular Volume 103.1 fl (80-100); Monocytes Percent Auto 4.5 % (2.6-8.5); Neutrophils Absolute Auto 0.2 K/mm3 (1.3-6.7); Nucleated Red Blood Cells Perc 18.2 % (0.0-0.2); Red Cell Distribution Width 16.8 % (11.5-14.5)
[2020-04-12 08:55] LABS: INR 2.3; Prothrombin Time 25.7 Seconds (11.1-14.7)
[2020-04-12 08:56] LABS: Partial Thromboplastin Time 47.1 SECONDS (22.3-36.8)
[2020-04-12 09:03] LABS: Hematocrit 16.5 % (42.0-52.0); Hemoglobin 5.4 g/dL (14.0-18.0); White Blood Count 0.2 K/mm3 (4.5-10.0)
[2020-04-12 09:04] LABS: Platelet Count Result < 3 k/mm3 (150-375)
[2020-04-12 09:06] LABS: Lactic Acid Reflex 6.3 mmol/L (0.7-2.1)
[2020-04-12 09:07] LABS: Anion Gap 9 mmol/L (8-16); Blood Urea Nitrogen 67 mg/dL (9-20); Calcium 8.2 mg/dL (8.4-10.2); Carbon Dioxide 21 mmol/L (22-30); Chloride 104 mmol/L (98-107); Estimated CRCL calculation 39 ml/min; Estimated Glomerular Filt Rate 42; Glucose 45 mg/dL (75-110); Potassium 5.1 mmol/L (3.4-5.0); Sodium 134 mmol/L (137-145)
[2020-04-12 09:09] LABS: NT Pro B Type Natriuretic Pept 9060 PG/ML (5-100)
[2020-04-12] MEDS: DEXTROSE 50% 25 GM/50 ML SYRINGE IV PUSH ×2 (09:12→09:45)
[2020-04-12 09:34] LABS: Glucose Point of Care 77 (65-105)
--- NOTE | 2020-04-12 11:21 | PC.NURSE ---
Bipap removed per family request. 2L nasal cannula placed. PRN morphine given for pt gasping.
[2020-04-12] MEDS: MORPHINE SULFATE (*CRX) 4 MG/ML INJ IV PUSH (11:22)
[2020-04-12 11:43] LABS: Reflex Lactic Acid Yes or No Add Lactic
--- NOTE | 2020-04-12 13:41 | PM.IMHP ---
H&P: HPI History of Present Illness Date/Time: 04/12/20 13:41 Chief Complaint: Altered consciousness with metastatic lung carcinoma Narrative: Date of visit 04/12/2020 1330. 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 She states has not been eating or drinking much the last 3 days with a steady downhill course. Originally diagnosed in July of 2019 and has received chemotherapy, immunotherapy, and radiation therapy. Family is aware of poor prognosis and have elected comfort care only at this time. He was hypotensive in the emergency room and initially received 2 L of IV fluid and D 50 with low blood sugar. Presently he is unresponsive and history is obtained from the and from the chart Review of Systems Review of Systems: Narrative: Patient is unresponsive and rules via systems unobtainable PMFSH Past Medical History Medical History (Updated 04/12/20 @ 13:54 by Castro Marin MD) COPD with emphysema History of alcohol abuse Small cell lung cancer Tobacco dependence Surgical History Surgical History No history of previous surgery Family History Family History Mother Liver malignancy Father Acute myocardial infarction Social History Social History (Updated 04/12/20 @ 13:46 by Castro Marin MD) Social History: The patient is and lives with his in [place]. They have 3 children who are healthy. 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 He has a history of alcohol abuse, but quit drinking approximately 05/15. He has smoked between 1 and 2 packs of cigarettes per day since age of 18. He uses marijuana on occasion. He designates his , Mary, as his surrogate decision maker. 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 100 mcg-umeclid 1 inhalation INHALATION DAILY #28 10/08/19 02/10/20 Rx 62.5 mcg-vilant 25 mcg each inhalat.powder demeclocycline 150 mg PO BID 04/12/20 04/12/20 History dexamethasone 4 mg PO QID 04/12/20 04/12/20 History hydrocodone-acetaminophen 1 tablet PO Q4H PRN 04/12/20 04/12/20 History metoprolol tartrate 50 mg PO BID 04/12/20 04/12/20 History pantoprazole 40 mg PO DAILY 04/12/20 04/12/20 History sodium chloride 1 g PO BID 04/12/20 04/12/20 History Allergies Allergy/AdvReac Type Severity Reaction Status Date / Time No Known Allergies Allergy Verified 02/10/20 09:11 Vital Signs Vital Signs - 24 hr 04/12/20 07:46 04/12/20 08:10 04/12/20 08:20 Temperature 36.0 C L Pulse Rate 106 H 90 Respiratory Rate 26 H 28 H Blood Pressure 71/39 L Pulse Oximetry 95 98 04/12/20 08:27 04/12/20 08:32 04/12/20 09:47 Temperature Pulse Rate 77 97 101 H Respiratory Rate 20 20 22 H Blood Pressure 114/66 66/38 L 75/57 L Pulse Oximetry 97 96 96 04/12/20 10:40 04/12/20 11:01 04/12/20 12:38 Temperature Pulse Rate 99 101 H 98 Respiratory Rate 20 20 9 L Blood Pressure 63/35 L 63/35 L Pulse Oximetry 97 98 83 L Exam Narrative: Exam Narrative: Blood pressure 64 over 36 pulse is 98 saturatin
[2020-04-12] MEDS: SCOPOLAMINE 1.5 MG PATCH TRANSDERM (14:05)
[2020-04-12] MEDS: MORPHINE SULFATE INJ (*CRX) 50 MG in SODIUM CHLORIDE 0.9% IV 95 ML IV CONT (14:06)
--- NOTE | 2020-04-12 18:03 | PM.DDS ---
Discharge Sum: Prov Provider Primary care physician: Savage Greenberg MD Admitting provider: Castro Marin MD Discharge Sum: Diag Contributing Factors (1) Small cell lung cancer in adult: (2) Pancytopenia: (3) Acute kidney injury: (4) Respiratory failure: Discharge Sum: Summary Date and Time Date of admission: 04/12/20 09:56 Date of : 04/12/20 Summary Details: 59-year-old male with end-stage metastatic small-cell carcinoma of the lung admitted with hypotension, lethargy, and pancytopenia. Family requested comfort measures. He was lethargic and unresponsive with agonal respirations. He was given anticholinergics for his secretions and started on low-dose IV morphine. He was kept in ER for probably 2-3 hours with the idea that he would probably there. Eventually he was admitted to the general medical floor and with treatment he soon Additional Data Attending physician: Castro Marin MD
== END 2020-04-12 15:00 | disposition expired | DRG 180 ==
LOC: ANHED 07:57 → ANH2MED 10:08
PROVIDERS: Admitting Provider Internal Medicine; Emergency Provider Emergency Medicine; PCP Family Medicine; Visit Provider Internal Medicine
DX: C34.90 Malignant neoplasm of unspecified part of unspecified bronchus or lung (principal); J96.90 Respiratory failure, unspecified, unspecified whether with hypoxia or hypercapnia; D61.818 Other pancytopenia; N17.9 Acute kidney failure, unspecified; C78.7 Secondary malignant neoplasm of liver and intrahepatic bile duct; C79.51 Secondary malignant neoplasm of bone; Z51.5 Encounter for palliative care; I95.9 Hypotension, unspecified; R53.83 Other fatigue; J43.9 Emphysema, unspecified; Z87.891 Personal history of nicotine dependence; Z92.21 Personal history of antineoplastic chemotherapy; Z92.3 Personal history of irradiation; Z92.25 Personal history of immunosuppression therapy
CPT/HCPCS: 36415; 71045; 80048; 82948; 83605; 83880; 85025; 85055; 85610; 85730; 93005; 94002; 96361; 96374; 96375; 96376; 99291; A9270; G0378; J2270; J7030